=== PATIENT | female | born 1950 | race Caucasian/White ===

== ENCOUNTER 2021-05-26 14:48 | Emergency (ER) | payer MEDICARE | END 2021-05-26 18:29 | disposition home or self-care (01) | LOC: CSHERS 14:48 | DX: R60.0 Localized edema (principal); M06.9 Rheumatoid arthritis, unspecified; Z79.899 Other long term (current) drug therapy ==

== ENCOUNTER 2022-06-24 14:35 | Outpatient (CLI) | payer MEDICARE | END 2022-06-24 14:36 | disposition home or self-care (01) | LOC: CSHMAMMO 14:35 | PROVIDERS: ATTEND Obstetrics & Gynecology | DX: Z12.31 Encounter for screening mammogram for malignant neoplasm of breast (principal) | CPT/HCPCS: 77063; 77067 ==